=== PATIENT | male | born 1985 | race Caucasian/White ===

== ENCOUNTER 2016-05-30 12:52 | Emergency (ER) | payer MEDICAID ==
[2016-05-30 13:01] VITALS: TEMP 97.7
[2016-05-30] MEDS ORDERED: NS 1,000 ML IV ONE (15:06)
[2016-05-30] MEDS ORDERED: ONDANSETRON 4 MG/2 ML VIAL IVP ONE (15:06)
--- NOTE | 2016-05-30 15:13 | EDPHY ---
H & P Stated Complaint: gen abd pain, nausea, red blood in formed stool, x 1 wk,ear fullness Time Seen by Provider: 05/30/16 14:51 HPI/ROS: CHIEF COMPLAINT: Abdominal pain dizziness HISTORY OF PRESENT ILLNESS: Patient is a 31-year-old man has a very difficult time pinpointing his chief complaint but after much discussion it seems to be that he has abdominal pain and does not feel hungry. He states that 3 weeks ago he went on a diving trip. Prior to the dive he had diarrhea and vomiting. He got some antibiotics from a pharmacy in [facility], took them and felt better. He then proceeded to dive. About 12 hours after his dive he felt lightheaded and like he was still on a boat. He has had those symptoms for the last 3 weeks since that point. They have remained stable and have not been worsening. About a week and a half after returning to the [facility] however he began to have mild epigastric pain felt anorexic. He has had some epigastric pain most of his life that he was diagnosed as IBS and GERD. He states however that this feels different because it is slightly lower. He also has noticed some blood on the outside of his stool. He has not had any more diarrhea or vomiting. He does have a history of hemorrhoids but in the past they had been external hemorrhoids and been itchy. Now they are not. He does not have any history of abdominal surgeries. He denies chest pain or shortness of breath. He was seen by his primary 4 days ago who ordered lab work has not yet returned. He has an appointment with a hyperbaric doctor on Wednesday however he was told over the phone by the hyperbaric physician that this does not sound like the bends or other type of dive injuries Because those are typically maximal in severity after the dive and gradually improve. REVIEW OF SYSTEMS: Constitutional: denies: chills, fever, recent illness, recent injury EENTM: denies: blurred vision, double vision, nose congestion Respiratory: denies: cough, shortness of breath Cardiac: denies: chest pain, irregular heart rate, lightheadedness, palpitations Gastrointestinal/Abdominal: See HPI Genitourinary: denies: dysuria, frequency, hematuria, pain Musculoskeletal: denies: joint pain, muscle pain Skin: denies: lesions, rash, jaundice, bruising Neurological: See HPI, denies headaches, weakness or paresthesias Hematologic/Lymphatic: denies: blood clots, easy bleeding, easy bruising Immunologic/allergic: denies: HIV/AIDS, transplant EXAM: GENERAL: Well-appearing, well-nourished and in no acute distress. HEAD: Atraumatic, normocephalic. EYES: Pupils equal round and reactive to light, extraocular movements intact, sclera anicteric, conjunctiva are normal. No nystagmus ENT: TMs with mild effusions bilaterally , nares patent, oropharynx clear without exudates. Moist mucous membranes. NECK: Normal range of motion, supple without lymphadenopathy or JVD. LUNGS: Breath sounds clear to auscultation bilaterally and equal. No wheezes rales or rhonchi. HEART: Regular rate and rhythm without murmurs, rubs or gallops. ABDOMEN: Soft, nontender, normoactive bowel sounds. No guarding, no rebound. No masses appreciated. BACK: No CVA tenderness, no spinal tenderness, step-offs or deformities EXTREMITIES: Normal range of motion, no pitting or edema. No clubbing or cyanosis. NEUROLOGICAL: Cranial nerves II through XII grossly intact. Normal speech, normal gait. 5/5 strength, normal movement in all extremities, normal sensation , normal cerebellar exam PSYCH: Normal mood, normal affect. SKIN: Warm, dry, normal turgor, no visible rashes or lesions. Source: Patient Exam Limitations: No limitations - Personal History Current Tetanus/Diphtheria Vaccine: Unsure Current Tetanus Diphtheria and Acellular Pertussis (TDAP): Unsure - Medical/Surgical History Hx Asthma: No Hx Chronic Respiratory Disease: No Hx Diabetes: No Hx Cardiac Disease: No Hx Renal Disease: No Hx Cirrhosis: No Hx Alcoholism: No Hx HIV/AIDS: No Hx Splenectomy or Spleen Trauma: No Other PMH: "stomach problem" for 7-8 years with negative workup. returned from diving trip in [place] 2 weeks ago - Family History Significant Family History: No pertinent family hx - Social History Smoking Status: Never smoked Alcohol Use: Sober Drug Use: None Constitutional: Initial Vital Signs Temperature (C) 36.5 C 05/30/16 12:57 Heart Rate 89 05/30/16 12:57 Respiratory Rate 16 05/30/16 12:57 Blood Pressure 126/86 H 05/30/16 12:57 O2 Sat (%) 98 05/30/16 12:57 O2 Delivery Mode Room Air Allergies/Adverse Reactions: No Known Allergies Allergy (Verified 02/05/16 09:40) Medical Decision Making - Diagnostics Imaging: Results: CT scan of the abdomen and pelvis was obtained. The results of the study are negative. The study was read by Dr. Manny Crawley. I viewed the images myself on the PACS system. Study: Ultrasound of the: Right upper quadrant Indication: Right upper quadrant pain Results: US scan of the right upper quadrant with special attention to the liver gallbladder and pancreas was obtained. The results of the study are negative for any gallstones, wall thickening or free fluid. The study was read by the radiologist, Dr. Manny Crawley. I viewed the images myself on the PACS system. ED Course/Re-evaluation: The patient's primary complaint seems to be epigastric pain. Does have some blood streaks stool which are likely hemorrhoids. Performed a rectal exam which revealed a small internal hemorrhoid. He also has some mild lightheadedness versus dizziness that is likely secondary. He does not have any neuro deficits. He does not have any nystagmus and does not describe vertigo. Patient is resting comfortably. He states that he is feeling better. Vital signs have been stable. His abdominal exam remains benign. We discussed the CT and lab results. I have ordered an ultrasound evaluated his elevated bilirubin. Performed a rectal exam which found a small internal hemorrhoid. Stool culture sent for Hemoccult blood. He tells me that he has had some dark colored stools and some greenish colored stools mixed together. With orthostatics the patient has stable blood pressure. His heart rate did increase. He did not have any symptoms during the measurements. Hemoccult negative. 6:00 p.m. we discussed the patient's ultrasound results. They are reassuring. He does have mild diffuse minus tympanic membranes. Possibly is having mild vertigo causing his abdominal symptoms. He will follow up with the hyperbaric Medicine physician on Wednesday. He declines further workup or testing at this time. He is feeling better and is eager to go home. We discussed indications for returning. Differential Diagnosis: Partial list of the Differential diagnosis considered include but were not limited to; otitis media, benign positional vertigo, anxiety, biliary disease, pancreatitis and although unlikely based on the history and physical exam, I also considered obstruction, electrolyte abnormality, pneumothorax, bends. I discussed these differential diagnoses and the plan with the patient as well as the usual and expected course. The patient understands that the diagnosis is provisional and that in medicine we are not always correct and that further workup is often warranted. Usual and customary warnings were given. All of the patient's questions were answered. The patient was instructed to return to the emergency department should the symptoms at all worsen or return, otherwise to followup with the physician as we discussed. - Data Points Laboratory Results: Laboratory Results 05/30/16 15:21 05/30/16 15:21 05/30/16 05/30/16 15: 14:00 WBC 6.68 10^3/uL (3.80-9.50) RBC 5.86 10^6/uL (4.40-6.38) Hgb 17.6 H g/dL (13.7-17.5) Hct 49.5 % (40.0-51.0) MCV 84.5 fL (81.5-99.8) MCH 30.0 pg (27.9-34.1) MCHC 35.6 g/dL (32.4-36.7) RDW 12.1 % (11.5-15.2) Plt Count 272 10^3/uL (150-400) MPV 10.9 fL (8.7-11.7) Neut % (Auto) 72.7 % (39.3-74.2) Lymph % (Auto) 18.3 % (15.0-45.0) [place] % (Auto) 6.3 % (4.5-13.0) Eos % (Auto) 1.6 % (0.6-7.6) Baso % (Auto) 1.0 % (0.3-1.7) Nucleat RBC Rel Count 0.0 % (0.0-0.2) Absolute Neuts (auto) 4.85 10^3/uL (1.70-6.50) Absolute Lymphs (auto) 1.22 10^3/uL (1.00-3.00) Absolute Monos (auto) 0.42 10^3/uL (0.30-0.80) Absolute Eos (auto) 0.11 10^3/uL (0.03-0.40) Absolute Basos (auto) 0.07 10^3/uL (0.02-0.10) Absolute Nucleated RBC 0.00 10^3/uL (0-0.01) Immature Gran % 0.1 % (0.0-1.1) Immature Gran # 0.01 10^3/uL (0.00-0.10) Sodium 142 mEq/L (134-144) Potassium 4.1 mEq/L (3.5-5.2) Chloride 102 mEq/L (97-110) Carbon Dioxide 28 mEq/l (22-31) Anion Gap 12 mEq/L (8-16) BUN 13 mg/dL (7-23) Creatinine 0.9 mg/dL (0.7-1.3) Estimated GFR > 60 Glucose 77 mg/dL (70-100) Calcium 9.4 mg/dL (8.5-10.4) Total Bilirubin 4.8 H mg/dL (0.1-1.4) Conjugated Bilirubin 0.0 mg/dL (0.0-0.5) Unconjugated Bilirubin 4.8 H mg/dL (0.0-1.1) AST 19 IU/L (17-59) ALT 39 IU/L (21-72) Alkaline Phosphatase 57 IU/L (38-126) Total Protein 7.0 g/dL (6.3-8.2) Albumin 4.0 g/dL (3.5-5.0) Lipase 49.0 IU/L (23-300) Urine Color PALE YELLOW Urine Appearance CLEAR Urine pH 7.0 (5.0-7.5) Ur Specific [place] 1.017 (1.002-1.030) Urine Protein NEGATIVE (NEGATIVE) Urine Ketones NEGATIVE (NEGATIVE) Urine Blood NEGATIVE (NEGATIVE) Urine Nitrate NEGATIVE (NEGATIVE) Urine Bilirubin NEGATIVE (NEGATIVE) Urine Urobilinogen NEGATIVE EU (0.2-1.0) Ur Leukocyte Esterase NEGATIVE (NEGATIVE) Ur Culture Indicated? NOT INDICATED (NI) Urine Glucose NEGATIVE (NEGATIVE) Medications Given: Discontinued Medications Sodium Chloride (Ns) 1,000 mls @ 0 mls/hr IV ONCE ONE PRN Reason: Wide Open Stop: 05/30/16 15:07 Last Admin: 05/30/16 15:25 Dose: 1,000 mls Ondansetron HCl (Zofran) 4 mg IVP EDNOW ONE Stop: 05/30/16 15:07 Last Admin: 05/30/16 15:25 Dose: 4 mg Departure - Departure Disposition: Home, Routine, Self-Care Clinical Impression: Vertigo Hemorrhoid Qualifiers: Hemorrhoid type: first degree Qualifier Code: (K64.0) First degree hemorrhoids Condition: Fair Instructions: Hemorrhoids (ED), Vertigo (ED) Referrals: Shu Grant [Primary Care Provider] - As per Instructions
[2016-05-30 15:31] LABS: % IMMATURE GRANULYOCYTES 0.1 % (0.0-1.1); ABSOLUTE IMMATURE GRANULOCYTES 0.01 10^3/uL (0.00-0.10); ADD DIFF? NO; ADD MORPH? NO; ADD SCAN? NO; ATYPICAL LYMPHOCYTE FLAG 20 (0-99); FRAGMENT RBC FLAG 0 (0-99); HEMATOCRIT 49.5 % (40.0-51.0); HEMOGLOBIN 17.6 g/dL (13.7-17.5); LEFT SHIFT FLG 0 (0-99); LIPEMIA HEMOLYSIS FLAG 90 (0-99); MEAN CELL HEMOGLOBIN CONCENTR. 35.6 g/dL (32.4-36.7); MEAN CELL VOLUME 84.5 fL (81.5-99.8); MEAN PLATELET VOLUME 10.9 fL (8.7-11.7); PLATELET CLUMPS FLAG 0 (0-99); PLATELET COUNT 272 10^3/uL (150-400); RED BLOOD CELL COUNT 5.86 10^6/uL (4.40-6.38); RED CELL DISTRIBUTION WIDTH 12.1 % (11.5-15.2)
[2016-05-30 16:22] LABS: ALANINE AMINOTRANSFERASE 39 IU/L (21-72); ALKALINE PHOSPHATASE 57 IU/L (38-126); ANION GAP 12 mEq/L (8-16); ASPARTATE AMINOTRANSFERASE 19 IU/L (17-59); BILIRUBIN,TOTAL 4.8 mg/dL (0.1-1.4); BILIRUBIN-UNCONJUGATED 4.8 mg/dL (0.0-1.1); CALCIUM 9.4 mg/dL (8.5-10.4); CARBON DIOXIDE 28 mEq/l (22-31); CHLORIDE 102 mEq/L (97-110); CREATININE 0.9 mg/dL (0.7-1.3); GLOMERULAR FILTRATION RATE > 60; GLUCOSE 77 mg/dL (70-100); POTASSIUM 4.1 mEq/L (3.5-5.2); SODIUM 142 mEq/L (134-144)
[2016-05-30] MEDS ORDERED: IOPAMIDOL (ISOVUE-300) 100 ML BTL IV ONE (16:31)
--- NOTE | 2016-05-30 17:01 | CT ---
CT Scan of the Abdomen and Pelvis (With Contrast) Clinical Indications: Abdominal pain. Dizziness. Technique: 90 mL of Isovue 300 were given intravenously by machine power injection. Multidetector he lical CT imaging was performed from the diaphragm to the symphysis pubis. Dose reduction techniques w ere utilized. Findings: CT ABDOMEN: Lung bases are clear. Liver, spleen, pancreas, and kidneys appear normal. No peritoneal f ree fluid. CT PELVIS: No masses or free fluid. Impression: Unremarkable CT examination of the abdomen and pelvis with contrast. Results called to Dr. Eladio Chung at 1700.
[2016-05-30 17:12] LABS: COLOR PALE YELLOW; LEUKOCYTE ESTERASE,URINE NEGATIVE (NEGATIVE); NITRITE,URINE NEGATIVE (NEGATIVE)
--- NOTE | 2016-05-30 18:13 | US ---
Right upper quadrant Abdominal Ultrasound History: Abnormal LFTs. Comparison: CT of the abdomen and pelvis, same day. Findings: The liver has normal echotexture and contour. There is no intrahepatic biliary dilatation. The common bile duct measures 2 mm and is normal. The gallbladder is normal. The right kidney has nor mal echotexture and contour without hydronephrosis or contour deforming masses. The right kidney harrison ures 11 cm. The visible aorta is normal caliber .. The visible portions of the pancreas are normal wi th partial obscuration of the pancreatic tail by overlying bowel gas. The visible portions of the IVC are normal. Impression: Normal abdominal ultrasound. Results called to Dr. Eladio Shaw at 1800.
[2016-05-30 18:23] VITALS: BP 125/71; PULSE 83; RESP 16; O2SAT 95
== END 2016-05-30 18:21 | disposition home or self-care (01) ==
DX: R42 Dizziness and giddiness (principal); K64.0 First degree hemorrhoids
CPT/HCPCS: 96374; J2405; Q9967

== ENCOUNTER 2016-11-12 15:52 | Emergency (ER) | payer MEDICAID ==
[2016-11-12 15:59] VITALS: TEMP 98.4
[2016-11-12] MEDS ORDERED: ONDANSETRON DISINTEGRATING 4 MG TAB PO ONE (16:48)
[2016-11-12] MEDS ORDERED: NS 1,000 ML IV ONE (16:48)
--- NOTE | 2016-11-12 16:48 | EDPHY ---
H & P Time Seen by Provider: 11/12/16 16:09 HPI/ROS: Chief complaint. Nausea HPI. 31-year-old male with history of stomach problems presents with nausea and feeling "washed out" for 1 week. He initially tells me abdominal pain as well but then tells me he has not had any abdominal pain. He told the nurse that he has been having fever but then denies to me that he has had any fever. He does feel that he has been sweating from his chest to his thighs for the past several days. He has had no vomiting. He has had some intermittent diarrhea without blood. No upper respiratory symptoms, cough, shortness of breath. No urinary symptoms. No change in the nausea with eating, position, activity. He thought this could have represented insect bite including tick or mosquito but can' t recall exposure and does not have a rash. He has had no recent travel, exposure to vomiting diarrhea illnesses, bad food. He has had similar symptoms previously ROS Constitutional. General malaise Eyes. no problems with vision ENT. no sore throat, no nasal drainage Cardiovascular. no chest pain Respiratory. no shortness of breath, no cough Abdominal. Nausea . no problems urinating MS. no calf pain/swelling, no neck/back pain, no joint pain Skin. no rash Lymph. no swollen glands Neuro. no headache, no dizziness, no difficulty walking or with speech Past Medical/Surgical History: Stomach problems Social History: Single, nonsmoker, no alcohol Smoking Status: Never smoked Physical Exam: General Appearance: Alert well-developed male no distress vital signs stable Eyes: Pupils equal and round no pallor or injection. ENT, Mouth: Mucous membranes are moist. Respiratory: There are no retractions, lungs are clear to auscultation. Cardiovascular: Regular rate and rhythm. Gastrointestinal: Abdomen is soft and nontender, no masses, bowel sounds normal. Neurological: Awake and alert, sensory and motor exams grossly normal. Skin: Warm and dry, no rashes. Musculoskeletal: Neck is supple nontender. Extremities symmetrical, full range of motion. Psychiatric: Patient is oriented X 3, there is no agitation. Constitutional: Initial Vital Signs Temperature (C) 36.9 C 11/12/16 15:58 Heart Rate 61 11/12/16 15:58 Respiratory Rate 14 11/12/16 15:58 Blood Pressure 114/62 11/12/16 15:58 O2 Sat (%) 96 11/12/16 15:58 O2 Delivery Mode Room Air Allergies/Adverse Reactions: No Known Allergies Allergy (Verified 02/05/16 09:40) Home Medications: Medication Instructions Recorded Ondansetron Odt [Zofran Odt] 4 mg PO Q4PRN PRN #7 tab 11/12/16 Medical Decision Making Procedures: IV normal saline. Zofran. ED Course/Re-evaluation: Re-evaluation 5:40 p.m.--feeling better. No vomiting. Patient and I discussed laboratory evaluation, treatment plan including criteria for return importance of follow-up and further evaluation. He expresses understanding and agreement Differential Diagnosis: I suspect that this may be viral syndrome. I considered pancreatitis. He really has no pain and no fever. No evidence for appendicitis - Data Points Laboratory Results: Laboratory Results 11/12/16 17:00 11/12/16 17:00 11/12/16 11/12/16 17:00 17:00 WBC 5.27 10^3/uL 10^3/uL (3.80-9.50) RBC 5.19 10^6/uL 10^6/uL (4.40-6.38) Hgb 15.6 g/dL g/dL (13.7-17.5) Hct 44.3 % % (40.0-51.0) MCV 85.4 fL fL (81.5-99.8) MCH 30.1 pg pg (27.9-34.1) MCHC 35.2 g/dL g/dL (32.4-36.7) RDW 11.5 % % (11.5-15.2) Plt Count 201 10^3/uL 10^3/uL (150-400) MPV 11.9 fL H fL (8.7-11.7) Neut % (Auto) 57.4 % % (39.3-74.2) Lymph % (Auto) 28.7 % % (15.0-45.0) [place] % (Auto) 7.8 % % (4.5-13.0) Eos % (Auto) 4.4 % % (0.6-7.6) Baso % (Auto) 1.5 % % (0.3-1.7) Nucleat RBC Rel Count 0.0 % % (0.0-0.2) Absolute Neuts (auto) 3.03 10^3/uL 10^3/uL (1.70-6.50) Absolute Lymphs (auto) 1.51 10^3/uL 10^3/uL (1.00-3.00) Absolute Monos (auto) 0.41 10^3/uL 10^3/uL (0.30-0.80) Absolute Eos (auto) 0.23 10^3/uL 10^3/uL (0.03-0.40) Absolute Basos (auto) 0.08 10^3/uL 10^3/uL (0.02-0.10) Absolute Nucleated RBC 0.00 10^3/uL 10^3/uL (0-0.01) Immature Gran % 0.2 % % (0.0-1.1) Immature Gran # 0.01 10^3/uL 10^3/uL (0.00-0.10) Sodium 141 mEq/L mEq/L (134-144) Potassium 4.3 mEq/L mEq/L (3.5-5.2) Chloride 105 mEq/L mEq/L (97-110) Carbon Dioxide 25 mEq/l mEq/l (22-31) Anion Gap 11 mEq/L mEq/L (8-16) BUN 15 mg/dL mg/dL (7-23) Creatinine 1.0 mg/dL mg/dL (0.7-1.3) Estimated GFR > 60 Glucose 77 mg/dL mg/dL (70-100) Calcium 9.5 mg/dL mg/dL (8.5-10.4) Lipase 57.0 IU/L IU/L (23-300) Medications Given: Discontinued Medications Sodium Chloride (Ns) 1,000 mls @ 0 mls/hr IV ONCE ONE; Wide Open PRN Reason: Protocol Stop: 11/12/16 16:49 Last Admin: 11/12/16 16:59 Dose: 1,000 mls Ondansetron HCl (Zofran Odt) 4 mg PO EDNOW ONE Stop: 11/12/16 16:49 Last Admin: 11/12/16 16:58 Dose: 4 mg Departure - Departure Disposition: Home, Routine, Self-Care Clinical Impression: Nausea Condition: Good Instructions: Acute Nausea and Vomiting (ED) Additional Instructions: Frequent, small sips fluids well nauseated. Zofran as needed for nausea. Gradual diet advancement. Return for worsening symptoms. Re-evaluation in 2-3 days for continuing symptoms Referrals: Shu Grant [Primary Care Provider] - 2-3 days, if not improved Prescriptions: Ondansetron Odt [Zofran Odt] 4 mg PO Q4PRN PRN #7 tab PRN Reason: Nausea/Vomiting, Use 1st
[2016-11-12 17:10] LABS: % IMMATURE GRANULYOCYTES 0.2 % (0.0-1.1); ABSOLUTE IMMATURE GRANULOCYTES 0.01 10^3/uL (0.00-0.10); ADD DIFF? NO; ADD MORPH? NO; ADD SCAN? NO; ATYPICAL LYMPHOCYTE FLAG 20 (0-99); FRAGMENT RBC FLAG 0 (0-99); HEMATOCRIT 44.3 % (40.0-51.0); HEMOGLOBIN 15.6 g/dL (13.7-17.5); LEFT SHIFT FLG 0 (0-99); LIPEMIA HEMOLYSIS FLAG 90 (0-99); MEAN CELL HEMOGLOBIN 30.1 pg (27.9-34.1); MEAN CELL HEMOGLOBIN CONCENTR. 35.2 g/dL (32.4-36.7); MEAN CELL VOLUME 85.4 fL (81.5-99.8); MEAN PLATELET VOLUME 11.9 fL (8.7-11.7); PLATELET CLUMPS FLAG 0 (0-99); PLATELET COUNT 201 10^3/uL (150-400); RED BLOOD CELL COUNT 5.19 10^6/uL (4.40-6.38); RED CELL DISTRIBUTION WIDTH 11.5 % (11.5-15.2)
[2016-11-12 17:27] LABS: ANION GAP 11 mEq/L (8-16); CALCIUM 9.5 mg/dL (8.5-10.4); CARBON DIOXIDE 25 mEq/l (22-31); CHLORIDE 105 mEq/L (97-110); GLOMERULAR FILTRATION RATE > 60; GLUCOSE 77 mg/dL (70-100); POTASSIUM 4.3 mEq/L (3.5-5.2); SODIUM 141 mEq/L (134-144)
[2016-11-12 17:57] VITALS: BP 118/67; PULSE 66; RESP 18; O2SAT 98
== END 2016-11-12 17:57 | disposition home or self-care (01) ==
DX: R11.0 Nausea (principal); E86.9 Volume depletion, unspecified

== ENCOUNTER 2016-11-17 14:41 | Emergency (ER) | payer MEDICAID ==
[2016-11-17 14:52] VITALS: RESP 14; TEMP 98.4
--- NOTE | 2016-11-17 16:19 | EDPHY ---
H & P Stated Complaint: Weakness, feels "shaky" Time Seen by Provider: 11/17/16 16:18 - Personal History Current Tetanus/Diphtheria Vaccine: Yes Current Tetanus Diphtheria and Acellular Pertussis (TDAP): Yes - Medical/Surgical History Hx Asthma: No Hx Chronic Respiratory Disease: No Hx Diabetes: No Hx Cardiac Disease: No Hx Renal Disease: No Hx Cirrhosis: No Hx Alcoholism: No Hx HIV/AIDS: No Hx Splenectomy or Spleen Trauma: No Other PMH: "stomach problem" for 7-8 years with negative workup. returned from diving trip in [facility] 2 weeks ago - Social History Smoking Status: Never smoked Constitutional: Initial Vital Signs Temperature (C) 36.9 C 11/17/16 14:49 Heart Rate 95 11/17/16 14:49 Respiratory Rate 14 11/17/16 14:49 Blood Pressure 118/71 11/17/16 14:49 O2 Sat (%) 96 11/17/16 14:49 O2 Delivery Mode Room Air Allergies/Adverse Reactions: No Known Allergies Allergy (Verified 11/17/16 14:48) Home Medications: Medication Instructions Recorded Ondansetron Odt [Zofran Odt] 4 mg PO Q4PRN PRN #7 tab 11/12/16 Medical Decision Making ED Course/Re-evaluation: CHIEF COMPLAINT: Weakness HISTORY OF PRESENT ILLNESS: This patient is a 31 year old male complaining of ongoing generalized weakness and malaise. He is feeling "drained" and "physically exhausted". He was seen last week for similar symptoms, and had nausea at that time which has since resolved. His weakness is global, possibly slightly increased in his mid body. He feels his bruises have been lasting longer than usual. No abdominal pain, headache, fever, cough, vomiting, or other associated symptoms. Denies use of alcohol, tobacco, caffeine, or illicit drugs. REVIEW OF SYSTEMS: A 10 point review of systems was performed and is negative with the exception of the elements mentioned in the history of present illness. PHYSICAL EXAM: HR, BP, O2 Sat, RR. Temp noted General Appearance: Alert, well hydrated, appropriate, and non-toxic appearing. Head: Atraumatic without scalp tenderness or obvious injury Eyes: Pupils equal, round, reactive to light and accommodation, EOMI, no trauma , no injection. Nose: Atraumatic, no rhinorrhea, clear. Throat: There is no erythema or exudates, no lesions, normal tonsils, mucus membranes moist. Neck: Supple, nontender, no lymphadenopathy. Respiratory: No retractions, no distress, no wheezes, and no accessory muscle use. Lungs are clear to auscultation bilaterally. Cardiovascular: Regular rate and rhythm, no murmurs, rubs, or gallops. Good capillary refill all extremities. Gastrointestinal: Abdomen is soft, nontender, non-distended. Musculoskeletal: Normal active ROM of all extremities, atraumatic. Neurological: Alert, appropriate, and interactive. The patient has normal DTRs and non-focal cranial nerves, motor, sensory, and cerebellar exam. Skin: No rashes, good turgor, no nodules on palpation. Past medical history: Stomach problems Past surgical history: Noncontributory Family history: Noncontributory Social history: [employer] Student DIFFERENTIAL DIAGNOSIS: The differential for the patient's weakness includes but is not limited to electrolyte imbalance, infectious processes, dehydration, cardiogenic, neurogenic, muscular, or psychiatric causes. MEDICAL DECISION MAKING: This patient is a 31 year old male presenting with ongoing generalized weakness. Plan for I-Stat to verify no acute changes since evaluation last week. I-stat results unremarkable. Plan to discharge in good condition with instructions to follow up with primary care or neurology for continued concerns. - Data Points Laboratory Results: 11/17/16 16:29 POC Hgb 16.0 gm/dL gm/dL (13.7-17.5) POC Hct 47 % % (40-51) POC Sodium 143 mEq/L mEq/L (134-144) POC Potassium 4.5 mEq/L mEq/L (3.3-5.0) POC Chloride 101 mEq/L mEq/L (97-110) POC BUN 18 mg/dL mg/dL (7-23) POC Creatinine 1.2 mg/dL mg/dL (0.7-1.3) POC Glucose 87 mg/dL mg/dL (70-100) Point of Care Test Results: 11/17/16 16:29 POC Sodium 143 POC Potassium 4.5 POC Chloride 101 POC BUN 18 POC Creatinine 1.2 POC Glucose 87 Departure - Departure Disposition: Home, Routine, Self-Care Clinical Impression: Weakness Condition: Good Instructions: Weakness (ED) Additional Instructions: 1. Follow up with your primary care provider or with a neurologist for continued evaluation of your weakness. We have referred you to our neurologist orthodontic treatment coordinator. 2. Return for any concerning worsening of condition. Referrals: Shu Grant [Primary Care Provider] - As per Instructions Miguel Georges MD [Medical Doctor] - As per Instructions [facility] [Clinic] - As per Instructions Report Scribed for: Ravin Bradley Report Scribed by: Christine Warren Date of Report: 11/17/16 Time of Report: 16:20
[2016-11-17 17:08] VITALS: BP 130/78; PULSE 80; O2SAT 94
== END 2016-11-17 17:05 | disposition home or self-care (01) ==
DX: R53.1 Weakness (principal)
CPT/HCPCS: 82947-QW